=== PATIENT | male | born 1965 | race Caucasian/White ===

== ENCOUNTER 2024-06-23 12:36 | Emergency (ER) | payer OTHER, SELFPAY ==
[2024-06-23 12:40] VITALS: BP 187/102
[2024-06-23 13:02] LABS: % Basophils 0.6 % (0-2); % Eosinophils 0.9 % (0-6); % Immature Granulocytes 0.2 % (0-0.5); % Lymphocytes 30.8 % (20.5-51.1); % Monocytes 7.7 % (1.7-9.3); % Neutrophils 59.8 % (42.2-75.2); Absolute Eosinophils 0.1 10^3/uL (0-0.7); Absolute Monocytes 0.5 10^3/uL (0.1-0.6); Absolute Neutrophils 3.8 10^3/uL (1.4-6.5); Hematocrit 42.7 % (39.0-52.0); Hemoglobin 14.9 g/dL (13.0-18.0); Mean Corp Hgb Conc. 34.9 g/dL (33.0-37.0); Mean Corpuscular Hgb 32.8 pg (27.0-31.0); Mean Corpuscular Volume 94.1 fL (80.0-94.0); Mean Platelet Volume 10.8 fL (7.4-10.4); Nucleated Red Blood Cells % 0 % (-); Platelet Count 203 10^3/uL (130-400); Red Blood Cell Count 4.54 10^6/uL (4.70-6.10); White Blood Cell Count 6.4 10^3/uL (4.8-10.8)
[2024-06-23 13:10] LABS: ALT (SGPT) 24 U/L (0-50); AST (SGOT) 25 U/L (17-59); Albumin 4.8 g/dl (3.5-5.0); Alkaline Phosphatase 67 U/L (38-126); Blood Urea Nitrogen 17 mg/dl (9-20); Calcium 9.6 mg/dl (8.4-10.2); Carbon Dioxide 28 mmol/L (22-30); Chloride 101 mmol/L (98-107); Glucose 138 mg/dl (70-99); Potassium 4.4 mmol/L (3.5-5.1); Sodium 140 mmol/L (135-145); Total Bilirubin 0.8 mg/dl (0.2-1.3); Total Protein 7.2 g/dl (6.3-8.2); eGFR > 60.00
[2024-06-23 13:22] LABS: Troponin I < 0.012 ng/ml
[2024-06-23 14:25] VITALS: BP 179/98
[2024-06-23 16:15] VITALS: BP 144/65
--- NOTE | 2024-06-23 16:42 | ED.GENMED ---
History of Present Illness
General
Chief Complaint: Chest Pain
Source: patient
Exam Limitations: none
Time Seen by Provider: 06/23/24 16:04
Nursing documentation reviewed up to this point in time: agreed with
History of Present Illness
History of Present Illness:
Patient presents to ED secondary to recurrent chest tightness associated with elevated blood pressure at home this morning. Chest pain described as tightness, nonradiating, without any alleviating or exacerbating factors. Patient has had number of
similar symptoms in the past, but but is always unsure whether or not he needs to be checked out, as he does have underlying aortic aneurysm which is being followed by his ecg technician. Patient had CT imaging study in January 2024, which did not reveal
any change from previous year. Denies shortness of breath. Denies nausea or vomiting. Denies headache. Denies dizziness. Of note, patient reports participating in bicycling/aerobic exercise 2 days ago for the first time, and is wondering
whether or not this may be contributing to his presenting symptoms. Deny recent travel or surgery. Denies back pain. Denies leg pain or swelling.
Past History
Past History
ED Past Medical History: HTN, Hypercholesterolemia, Psychiatric and Other (Thoracic AA 5.1 cm February 2019)
ED Past Surgical History: Tonsilectomy and Other
Social History
Tobacco: Non-smoker
Drug: None
Personal:
Living: with family
Employment: Employed
Family History
Family History: Other
Review of Systems
Review of Systems
Allergies reviewed?: Yes
All Other Systems: ROS reviewed and negative except as documented in HPI and ROS
Constitutional: Reports no symptoms
EENT: Reports no symptoms
Respiratory: Reports no symptoms; Denies trouble breathing
Cardiac: Reports chest pain; Denies diaphoresis, palpitations or syncope
ABD/GI: Reports no symptoms; Denies nausea or vomiting
Musculoskeletal: Reports no symptoms
Skin: Reports no symptoms
Neurological: Reports no symptoms
Phy Exam
Physical Exam
Physical Exam:
Physical Exam
General: no apparent distress, not acutely ill. afebrile.
Head: nc/at. eomi
Neck: supple. no meningeal signs.
Heart: s1/s2 regular rate and rhythm, no murmur. equal radial pulses.
Lungs: no acute respiratory distress. clear bilaterally. chest wall nontender to palpation.
Abdomen: normal bowel sounds. not tender.
Neuro: alert and oriented. no focal neurological deficits
Skin: no rash
Psychiatric: well kept. interactive and cooperative
Extremities: no edema. no calf tenderness.
Scores
Heart Score for Chest Pain Patients
STEMI patient?: No
History: Slightly or Non-Suspicious
ECG: Normal
Age: >45 - <65 years
Risk Factors: 1 or 2 Risk Factors
Troponin: </= Normal Limit
Heart Score for Chest Pain Patients: 2
Heart Score Risk: 2.5% MACE over next 6 weeks
Course
Orders/Labs/Results
Orders:
Orders
06/23/24 12:37
Electrocardiogram (*1) Urgent
Reason for Study: Chest Pain
EKG- Treatment ONCE
06/23/24 12:48
Complete Blood Count/With Diff Urgent
Comprehensive Metabolic Panel Urgent
Troponin I Urgent
06/23/24 16:05
CR Chest - 2 Views Urgent
Comment:
Reason For Exam: chest pain
Abnormal Lab Results
06/23/24
12:48
RBC 4.54 L 10^6/uL
(4.70-6.10)
MCV 94.1 H fL
(80.0-94.0)
MCH 32.8 H pg
(27.0-31.0)
MPV 10.8 H fL
(7.4-10.4)
Glucose 138 H mg/dl
(70-99)
06/23/24 12:48
06/23/24 12:48
Vital Signs
Initial and Last Documented VS:
Initial Vital Signs
Temp Pulse Resp BP Pulse Ox
98.0 F 66 16 187/102 97
06/23/24 12:40 06/23/24 12:40 06/23/24 12:40 06/23/24 12:40 06/23/24 12:40
Last Documented Vital Signs
Temp Pulse Resp BP Pulse Ox
98.0 F 59 18 144/65 99
06/23/24 12:40 06/23/24 16:15 06/23/24 16:15 06/23/24 16:15 06/23/24 16:15
MDM/Problems Addressed
MDM/Problems Addressed:
History exam inconsistent with acute coronary syndrome. Patient with likely nonspecific, possible musculoskeletal chest wall pain versus esophagitis, which has heightened his underlying anxiety. Patient will continue to follow-up with his
ecg technician and CT surgeon for his underlying aortic aneurysm. Patient does take Klonopin at nighttime daily. Patient inquiring about possibly seeing psychiatrist for his anxiety, which I agree with. As such, recommended that he speaks with his
primary care physician or nurse navigator from his insurance company for an outpatient evaluation. Otherwise, patient is afebrile, hemodynamically stable, and is without any distress, at time of discharge.
*EKG
Interpreted by ED Provider?: Yes
EKG Intrepretation Date: 06/23/24
Heart Rate: 63
Rate: normal
Rhythm: sinus
Sunset: normal axis
Interval: normal interval and first degree heart block
*Critical Care Note
Total Time (30-74mins, 75-104mins- exclusive of procedures): Not Applicable
ED Attending Note
-
Portions of this chart may have been created with voice recognition software.� Occasional wrong word or��sound alike� substitutions may have occurred due to the inherent limitations of voice recognition software.
Discharge Plan
Departure
Patient Disposition: Home (Routine Discharge)
Date of Disposition: 06/23/24
Time of Disposition: 16:48
Patient with high blood pressure during this ER visit?: Yes
Discharge Problem:
Chest pain
Instructions: Chest Pain NON-[facility]P Nurse Obgyn Follow Up
Prescriptions:
No Action
metoprolol succinate 50 MG tablet extended release 24 hr
75 mg PO DAILY
simvastatin 20 MG tablet
20 mg PO DAILY
losartan 25 MG tablet
25 mg PO DAILY
duloxetine 60 MG capsule,delayed release(DR/EC)
60 mg PO DAILY
lorazepam 1 MG tablet
1 mg PO Q6HPRN PRN (Reason: anxiety) Qty: 15 0RF
buspirone 10 MG tablet
7.5 mg PO BID
meclizine 12.5 MG tablet
12.5 mg PO TID 7 Days Qty: 20 0RF
Referrals:
Larry Murray MD [Family Provider] -
Activity Restrictions/Additional Instructions:
As discussed, please follow-up with your primary care physician and/or ecg technician with any further concerns.
Interventions
Interventions:
*Risk Screen - Suicide Last Done: 06/23/24 12:40
*General Assessment Last Done: 06/23/24 12:40
*Neglect/Abuse Screening Last Done: 06/23/24 12:40
ED- Fall Risk Assessment Last Done: 06/23/24 16:09
*ED COVID-19 Vaccine History Last Done: 06/23/24 12:40
*Nursing Disposition Last Done: 06/23/24 17:04
ED- Cardiac Assessment Last Done: 06/23/24 16:09
Discharge Date and Time
Discharge Date/Time: 06/23/24 17:05
Print Language: ALGERIAN
== END 2024-06-23 17:05 | disposition home or self-care (01) ==
LOC: EMR 12:36
PROVIDERS: Student in an Organized Health Care Education/Training Program; EMERGENCY PHYSICIAN Emergency Medicine; FAMILY PHYSICIAN Internal Medicine
DX: R07.89 Other chest pain (principal); I10 Essential (primary) hypertension; E78.00 Pure hypercholesterolemia, unspecified; I71.20 Thoracic aortic aneurysm, without rupture, unspecified; Z79.899 Other long term (current) drug therapy
CPT/HCPCS: 99285; 71046; 80053; 84484; 85025; 93005

== ENCOUNTER 2024-10-15 16:47 | Emergency (ER) | payer OTHER, SELFPAY ==
[2024-10-15] VITALS (11 sets, daily range): BP systolic 130–168; BP diastolic 83–99; BMI 32.4
--- NOTE | 2024-10-15 19:03 | ED.GENMED ---
History of Present Illness
General
Chief Complaint: Back Pain
Source: patient
Exam Limitations: none
Time Seen by Provider: 10/15/24 17:48
Nursing documentation reviewed up to this point in time: agreed with
History of Present Illness
History of Present Illness:
pt is a 59 y/o M
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
hre with lower back pain x 3 days, more abrupt in onset and radiates up his back causing him anxiet when he thought it could be his aneurysm
no weakness in the legs
but has been having intermittent waking up episodes at night with carmps in calves, R>L
feels like his R calf is more swollen and is worried he has a clot
he is on a statin and has been for yeras, never had trouble tolerating it
pt has tried heat for his back
it is notnratiding
notp ositional
he started reading that back pain an be sign of aneurysm
Past History
Past History
ED Past Medical History: HTN, Hypercholesterolemia, Psychiatric and Other (Thoracic AA 5.1 cm February 2019)
ED Past Surgical History: Tonsilectomy and Other
Social History
Tobacco: Non-smoker
Drug: None
Personal:
Living: with family
Employment: Employed
Family History
Family History: Other
Review of Systems
Review of Systems
Allergies reviewed?: Yes
All Other Systems: Not applicable
Phy Exam
Physical Exam
Physical Exam:
GENERAL: Alert , in no apparent distress, comfortable at rest; anxious
HEAD: NCAT
NECK: no midline tenderness, active ROM intact, no paraspinal muscle tenderness;
CARDIAC: Regular rate and rhythm, no edema
LUNGS: Clear breath sounds bilaterally, no acute respiratory distress, no wheezes/rales/rhonchi
ABDOMEN: Soft, without focal tenderness, no r/g, no cvat, normal bowel sounds, nondistended
NEUROLOGICAL: Alert and oriented, no focal neuro deficits, CN intact, 5/5 strength, sensation intact, ambulation slight limp left leg
SKIN: Warm and dry,
MUSCULOSKELETAL: No edema, well perfused. normal inspection of the calves, nontender, normal pulses; perfused; good color
Back: No midline tenderness, full ROM, no swelling
negative straight leg raise Bilaterally
PSYCH: Normal and appropriate interaction.
Course
Orders/Labs/Results
Orders:
Orders
10/15/24 18:26
CT Chest/abd/pelvis Angio W/wo Urgent
Comment:
Reason For Exam: aortic aneurysm, back pain
Venous Doppler Lwr Ext Bilat [US Periph Venous LOWER Ext Benito] Urgent
Comment:
Reason For Exam: b/l leg pain, concern for DVT
10/15/24 19:06
Add On- LAB Urgent
Tests Added?: CPK
10/15/24 19:08
Electrocardiogram (*1) Urgent
Reason for Study: Other
Other Reason for Exam: back pain
EKG- Treatment ONCE
10/15/24 19:35
CPK [Creatine Phosphokinase] Urgent
Complete Blood Count/With Diff Urgent
Comprehensive Metabolic Panel Urgent
PTT Urgent
Prothrombin Time Urgent
Troponin I Urgent
Abnormal Lab Results
10/15/24
19:35
MCH 31.7 H pg
(27.0-31.0)
BUN 23 H mg/dl
(9-20)
Glucose 102 H mg/dl
(70-99)
10/15/24 19:35
10/15/24 19:35
Vital Signs
Initial and Last Documented VS:
Initial Vital Signs
Temp Pulse Resp BP Pulse Ox
36.6 C 71 16 149/98 98
10/15/24 16:49 10/15/24 16:49 10/15/24 16:49 10/15/24 16:49 10/15/24 16:49
Last Documented Vital Signs
Temp Pulse Resp BP Pulse Ox
37.1 C 65 12 150/87 100
10/15/24 20:00 10/15/24 20:00 10/15/24 20:00 10/15/24 20:00 10/15/24 20:00
MDM/Problems Addressed
Differential Diagnosis Includes:
msk back pain, lumbar strain, muscle spasm, AAA, dvt
MDM/Problems Addressed:
59 y/o M with ho AAA 5.1 x 4.9 in [address] surgery [facility] who have done CT lat year and no change
here with atraumatic lower back pain radiates up back not down legs
mild /10
pt is very anxius he has growth of his aneurysm and called his dcotro who told him to come gte CTA
he also ahs some calf pain for a few days in both calves at night
not worse with walking
no weakness, numbness, color change, foot drop
pt is very anxious about having this aneurysm
he is anxious but well appearing
exam is benign
normal NV status
not significatnly hypertensive
calves nontende
rnormal exam
cta was stable appearance of aneurysm 4.9 cm
d/c home
f/u outpatient
*Critical Care Note
Total Time (30-74mins, 75-104mins- exclusive of procedures): Not Applicable
ED Attending Note
-
Portions of this chart may have been created with voice recognition software.� Occasional wrong word or��sound alike� substitutions may have occurred due to the inherent limitations of voice recognition software.
Discharge Plan
Departure
Discharge Problem:
Back pain, Calf pain, ascending arch aneurysm
Instructions: Low Back Pain (DC)
Prescriptions:
No Action
metoprolol succinate 50 MG tablet extended release 24 hr
75 mg PO DAILY
simvastatin 20 MG tablet
20 mg PO DAILY
losartan 25 MG tablet
25 mg PO DAILY
duloxetine 60 MG capsule,delayed release(DR/EC)
60 mg PO DAILY
lorazepam 1 MG tablet
1 mg PO Q6HPRN PRN (Reason: anxiety) Qty: 15 0RF
buspirone 10 MG tablet
7.5 mg PO BID
meclizine 12.5 MG tablet
12.5 mg PO TID 7 Days Qty: 20 0RF
Referrals:
Larry Murray MD [Family Provider] - Follow up in 2-3 days
Activity Restrictions/Additional Instructions:
YOUR CAT SCAN SHOWS A STABLE APPEARANCE OF YOUR ANEURYSM MEASURING 4.9 CM ACCORDING TO THE RADIOLOGIST
YOUR BLOOD WORK WAS REASSURING
YOUR ULTRASOUND WAS NEGATIVE FOR CLOT
FOLLOW UPWITH YOUR SUPERVISORY INVESTIGATIVE SPECIALIST PLANNED AND YOUR CT SURGEON
FOR YOUR BACK PAIN, TAKE TYLENOL NEEDED LIDOCAINE PATCHES
RETURN FOR ANY CONCERNS, LEG WEAKNESS, NUBMNESS, SEVERE SUDDEN WORST PAIN, FEVER, ETC.
Interventions
Interventions:
*Risk Screen - Suicide Last Done: 10/15/24 16:49
*General Assessment Last Done: 10/15/24 17:42
*Neglect/Abuse Screening Last Done: 10/15/24 16:49
ED- Fall Risk Assessment Last Done: 10/15/24 17:44
*ED COVID-19 Vaccine History Last Done: 10/15/24 17:43
ED-Musculoskeletal Assessment Last Done: 10/15/24 17:52
Discharge Date and Time
Print Language: NORWEGIAN
[2024-10-15 19:45] LABS: % Basophils 0.5 % (0-2); % Eosinophils 0.8 % (0-6); % Immature Granulocytes 0.1 % (0-0.5); % Lymphocytes 38.8 % (20.5-51.1); % Monocytes 5.8 % (1.7-9.3); Absolute Eosinophils 0.1 10^3/uL (0-0.7); Absolute Monocytes 0.5 10^3/uL (0.1-0.6); Absolute Neutrophils 4.2 10^3/uL (1.4-6.5); Hematocrit 43.5 % (39.0-52.0); Hemoglobin 15.2 g/dL (13.0-18.0); Mean Corp Hgb Conc. 34.9 g/dL (33.0-37.0); Mean Corpuscular Hgb 31.7 pg (27.0-31.0); Mean Corpuscular Volume 90.6 fL (80.0-94.0); Mean Platelet Volume 10.3 fL (7.4-10.4); Nucleated Red Blood Cells % 0 % (-); Platelet Count 193 10^3/uL (130-400); Red Cell Dist. Width 12.7 % (11.5-14.5); White Blood Cell Count 7.8 10^3/uL (4.8-10.8)
[2024-10-15 19:54] LABS: INR 1.05
[2024-10-15 19:55] LABS: APTT 26.6 Sec (23.4-35.0)
[2024-10-15 20:00] LABS: ALT (SGPT) 28 U/L (0-50); AST (SGOT) 25 U/L (17-59); Albumin 4.6 g/dl (3.5-5.0); Alkaline Phosphatase 65 U/L (38-126); Blood Urea Nitrogen 23 mg/dl (9-20); Calcium 9.9 mg/dl (8.4-10.2); Carbon Dioxide 28 mmol/L (22-30); Chloride 100 mmol/L (98-107); Creatine Phosphokinase 84 U/L (55-170); Estimated Creatinine Clearance 92 ml/min; Glucose 102 mg/dl (70-99); Potassium 4.2 mmol/L (3.5-5.1); Sodium 136 mmol/L (135-145); Total Protein 7.4 g/dl (6.3-8.2); eGFR > 60.00
[2024-10-15 20:12] LABS: Troponin I < 0.012 ng/ml
== END 2024-10-15 23:30 | disposition home or self-care (01) ==
LOC: EMR 16:47
PROVIDERS: Physician Assistant; EMERGENCY PHYSICIAN Student in an Organized Health Care Education/Training Program; FAMILY PHYSICIAN Internal Medicine
DX: M54.50 Low back pain, unspecified (principal); M79.662 Pain in left lower leg; M79.661 Pain in right lower leg; I71.21 Aneurysm of the ascending aorta, without rupture; I10 Essential (primary) hypertension; E78.00 Pure hypercholesterolemia, unspecified
CPT/HCPCS: 99285; 71275; 74174; 80053; 82550; 84484; 85025; 85610; 85730; 93005; 93970; Q9967